=== PATIENT | female | born 1975 | race African-American/Black ===

== ENCOUNTER 2018-03-10 09:10 | Emergency (ER) | payer SELFPAY ==
--- NOTE | 2018-03-10 10:22 | RAD REPORT ---
EXAM DESCRIPTION: Sridhar Pa And Lat (2 Views)03/10/2018 10:12 am CLINICAL HISTORY: Cough COMPARISON: None FINDINGS: Small left pleural effusion is present. Small amount of fluid is loculated within the obl ique fissure. Mild left basilar opacities probably represent atelectasis. The heart is normal size
[2018-03-10] MEDS ORDERED: FUROSEMIDE 20 MG TABLET ONE (10:33)
--- NOTE | 2018-03-10 11:05 | ER ---
Nurse's Notes [facility] Name: Sherley Alex Age: 42 yrs Sex: Female : 1975 Arrival Date: 03/10/2018 Time: 09:14 Bed 19 Private MD: out of town, doctor Diagnosis: Edema, unspecified Presentation: 03/10 09:22 Presenting complaint: Patient states: bilateral lower extremity swelling x "a few ss days", that has been getting worse over time. Transition of care: patient was not received from another setting of care. Risk Assessment: Do you want to hurt yourself or someone else? Patient reports no desire to harm self or others. Initial Sepsis Screen: Does the patient meet any 2 criteria? No. Patient's initial sepsis screen is negative. Does the patient have a suspected source of infection? No. Patient's initial sepsis screen is negative. Care prior to arrival: None. 09:22 Method Of Arrival: Ambulatory ss 09:22 Acuity: BABITA 3 ss 09:27 Note Pt reports she is currently staying at [facility] for ETOH abuse and is ss reportedly 23 days sober. Historical: - Allergies: 09:27 No Known Allergies; ss - Home Meds: 09:27 levothyroxine 75 mcg tab 1 tab once daily [Active]; meloxicam 15 mg oral tab 1 tab once ss daily [Active]; - PMHx: 09:27 etoh abuse (23 days sober 03/10/18); Hypothyroidism; ss - PSHx: 09:27 None; ss - Immunization history:: Adult Immunizations up to date. - Social history:: Smoking status: Patient/guardian denies using tobacco, Patient uses ETOH, however is 23 days sober. - Ebola Screening: : Patient denies exposure to infectious person Patient denies travel to an Ebola-affected area in the 21 days before illness onset. Screenin:45 Abuse screen: Denies threats or abuse. Nutritional screening: No deficits noted. em Tuberculosis screening: No symptoms or risk factors identified. Fall Risk None identified. Assessment: 10:35 General: Appears in no apparent distress. comfortable, Behavior is calm, cooperative, em Denies fever. Pain: Complains of pain in right leg and left leg Pain currently is 8 out of 10 on a pain scale. Quality of pain is described as pressure. Neuro: Level of Consciousness is awake, alert, obeys commands, Oriented to person, place, time, situation. Cardiovascular: Edema is 2+ to left midcalf, left ankle, left foot, left toes, right midcalf, right ankle, right foot and right toes. Respiratory: Airway is patent Respiratory effort is even, unlabored, Respiratory pattern is regular, symmetrical, Breath sounds are clear bilaterally. GI: Abdomen is flat. Derm: Skin is intact, is healthy with good turgor, Skin is pink, warm \\T\\ dry. Musculoskeletal: Range of motion: intact in all extremities. 10:45 General: The previous assessment is accurate, call light remains within reach. . ss 11:30 Reassessment: Patient appears in no apparent distress at this time. pt request to speak em with provider about dx, pt was explained dx and explained medications and to follow up with PCP, pt still adamant on speaking with provider, provider notified. Vital Signs: 09:27 BP 138 / 78; Pulse 92; Resp 16; Temp 98.5(TE); Pulse Ox 100% on R/A; ss 10:48 BP 126 / 98; Pulse 69; Resp 17; Pulse Ox 100% on R/A; mh5 11:04 BP 133 / 80; Pulse 60; Resp 16; Temp 98.2(O); Pulse Ox 100% on R/A; mh5 ED Course: 09:14 Patient arrived in ED. sb2 09:14 out of town, doctor is Private Physician. sb2 09:19 [facility] snw 09:19 Jayy Leon MD is Attending Physician. snw 09:19 Patient has correct armband on for positive identification. Bed in low position. Call mh5 light in reach. Placed in gown. Side rails up X 1. Warm blanket given. Pillow given. Pulse ox on. NIBP on. 09:25 Triage completed. ss 09:27 Arm band placed on right wrist. ss 10:01 Anish Meneses LVN is Primary Nurse. em 10:06 Chest Pa And Lat (2 Views) XRAY In Process Unspecified. EDMS 10:51 US Extremity Venous W Compression Devendra In Process Unspecified. EDMS 11:11 No provider procedures requiring assistance completed. Patient did not have IV access em during this emergency room visit. Administered Medications: 09:51 CANCELLED (other intervention used): Lasix 20 mg IVP once snw 10:50 Drug: LaSIX 20 mg Route: PO; em 11:32 Follow up: Response: No adverse reaction em 11:22 Drug: Motrin 400 mg Route: PO; em 11:32 Follow up: Response: No adverse reaction em Outcome: 11:04 Discharge ordered by . snw 12:01 Discharged to home ambulatory. em 12:01 Condition: good 12:01 Discharge instructions given to patient, Instructed on discharge instructions, follow up and referral plans. Demonstrated understanding of instructions, follow-up care, Prescriptions given X 2. 12:02 Patient left the ED. em Signatures: Dispatcher [employer] EDMS Cookie Welch, OIL AND GAS SUPERINTENDENT-C OIL AND GAS SUPERINTENDENT-Csnw Anish Meneses, WOOD MILL SUPERVISOR WOOD MILL SUPERVISOR em Nel Sánchez, NHAN RN Janel Perez 5 Mary Link sb2 Corrections: (The following items were deleted from the chart) 12:02 11:30 Reassessment: Patient appears in no apparent distress at this time. pt request to em speak with provider about dx, pt was explained dx and explained medications, pt still adamant on speaking with provider, provider notified em
--- NOTE | 2018-03-10 11:05 | EDPHYS ---
Physician Documentation [facility] Name: Sherley Alex Age: 42 yrs Sex: Female : 1975 Arrival Date: 03/10/2018 Time: 09:14 Bed 19 Private MD: out of town, doctor ED Physician Jayy Leon HPI: 03/10 09:54 This 42 yrs old Female presents to ER via Ambulatory with complaints of Ankle Swelling. snw 09:54 The patient presents with swelling. The complaints affect the left ankle, right ankle. snw Onset: The symptoms/episode began/occurred gradually, and became persistent. Context: The problem was sustained at home, resulted from an unknown cause. Associated signs and symptoms: The patient has no apparent associated signs or symptoms. Severity of symptoms: At their worst the symptoms were moderate. The patient has not experienced similar symptoms in the past. It is unknown whether or not the patient has recently seen a physician. Historical: - Allergies: : No Known Allergies; ss - Home Meds: :27 levothyroxine 75 mcg tab 1 tab once daily [Active]; meloxicam 15 mg oral tab 1 tab once ss daily [Active]; - PMHx: 09:27 etoh abuse (23 days sober 03/10/18); Hypothyroidism; ss - PSHx: :27 None; ss - Immunization history:: Adult Immunizations up to date. - Social history:: Smoking status: Patient/guardian denies using tobacco, Patient uses ETOH, however is 23 days sober. - Ebola Screening: : Patient denies exposure to infectious person Patient denies travel to an Ebola-affected area in the 21 days before illness onset. ROS: 09:53 Constitutional: Negative for fever, chills, and weight loss, Eyes: Negative for injury, snw pain, redness, and discharge, ENT: Negative for injury, pain, and discharge, Neck: Negative for injury, pain, and swelling, Cardiovascular: Negative for chest pain, palpitations, and edema, Respiratory: Negative for shortness of breath, cough, wheezing, and pleuritic chest pain, Abdomen/GI: Negative for abdominal pain, nausea, vomiting, diarrhea, and constipation, Back: Negative for injury and pain, : Negative for injury, bleeding, discharge, and swelling, Skin: Negative for injury, rash, and discoloration, Neuro: Negative for headache, weakness, numbness, tingling, and seizure, Psych: Negative for depression, anxiety, suicide ideation, homicidal ideation, and hallucinations. 09:53 MS/extremity: Positive for swelling, of the right ankle and left ankle. Exam: 09:52 Constitutional: This is a well developed, well nourished patient who is awake, alert, snw and in no acute distress. Head/Face: Normocephalic, atraumatic. Eyes: Pupils equal round and reactive to light, extra-ocular motions intact. Lids and lashes normal. Conjunctiva and sclera are non-icteric and not injected. Cornea within normal limits. Periorbital areas with no swelling, redness, or edema. ENT: Nares patent. No nasal discharge, no septal abnormalities noted. Tympanic membranes are normal and external auditory canals are clear. Oropharynx with no redness, swelling, or masses, exudates, or evidence of obstruction, uvula midline. Mucous membranes moist. Neck: Trachea midline, no thyromegaly or masses palpated, and no cervical lymphadenopathy. Supple, full range of motion without nuchal rigidity, or vertebral point tenderness. No Meningismus. Chest/axilla: Normal chest wall appearance and motion. Nontender with no deformity. No lesions are appreciated. Cardiovascular: Regular rate and rhythm with a normal S1 and S2. No gallops, murmurs, or rubs. Normal PMI, no JVD. No pulse deficits. Respiratory: Lungs have equal breath sounds bilaterally, clear to auscultation and percussion. No rales, rhonchi or wheezes noted. No increased work of breathing, no retractions or nasal flaring. Abdomen/GI: Soft, non-tender, with normal bowel sounds. No distension or tympany. No guarding or rebound. No evidence of tenderness throughout. Back: No spinal tenderness. No costovertebral tenderness. Full range of motion. Skin: Warm, dry with normal turgor. Normal color with no rashes, no lesions, and no evidence of cellulitis. Neuro: Awake and alert, GCS 15, oriented to person, place, time, and situation. Cranial nerves II-XII grossly intact. Motor strength 5/5 in all extremities. Sensory grossly intact. Cerebellar exam normal. Normal gait. Psych: Awake, alert, with orientation to person, place and time. Behavior, mood, and affect are within normal limits. 09:52 Musculoskeletal/extremity: ROM: intact in all extremities, Circulation is intact in all extremities. Sensation intact. bilateral lower ext with edema, feet elevated post assessment. Vital Signs: 09:27 BP 138 / 78; Pulse 92; Resp 16; Temp 98.5(TE); Pulse Ox 100% on R/A; ss 10:48 BP 126 / 98; Pulse 69; Resp 17; Pulse Ox 100% on R/A; mh5 11:04 BP 133 / 80; Pulse 60; Resp 16; Temp 98.2(O); Pulse Ox 100% on R/A; mh5 MDM: 09:19 Patient medically screened. snw 11:05 Data reviewed: vital signs, nurses notes. Data interpreted: Pulse oximetry: on room air snw is 100 %. Interpretation: normal. Counseling: I had a detailed discussion with the patient and/or guardian regarding: the historical points, exam findings, and any diagnostic results supporting the discharge/admit diagnosis, the presence of at least one elevated blood pressure reading (>120/80) during this emergency department visit, radiology results, the need for outpatient follow up, to return to the emergency department if symptoms worsen or persist or if there are any questions or concerns that arise at home. Special discussion: I have referred the patient to see his PCP for further evaluation of high blood pressure. Based on the history and exam findings, there is no indication for further emergent testing or inpatient evaluation. I discussed with the patient/guardian the need to see the primary care provider for further evaluation of the symptoms. 11:49 Response to treatment: Pt resistant to explanation of edema. Discussed plan of care snw prior to testing. 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 Pt requested pain medications, tylenol ordered. Pt in tx facility for ETOH abuse. Negative chest and US results relayed by pt's Nurse. As pt was leaving, I offered to print results and discuss them with her and she declined and stated that she is just going to leave.. 03/10 09:51 Order name: US Extremity Venous W Compression Devendra; Complete Time: 11:38 snw 03/10 09:51 Order name: Chest Pa And Lat (2 Views) XRAY; Complete Time: 10:23 snw Administered Medications: 09:51 CANCELLED (other intervention used): Lasix 20 mg IVP once snw 10:50 Drug: LaSIX 20 mg Route: PO; em 11:32 Follow up: Response: No adverse reaction em 11:22 Drug: Motrin 400 mg Route: PO; em 11:32 Follow up: Response: No adverse reaction em Disposition: 03/10/18 11:04 Discharged to Home. Impression: Edema, unspecified. - Condition is Stable. - Discharge Instructions: Alcohol Abuse and Nutrition, Rehydration, Adult, Peripheral Edema. - Prescriptions for Vitamin 27- 0.8 mg Oral Tablet - take 1 tablet by ORAL route once daily; 30 tablet. Hydrochlorothiazide 25 mg Oral Tablet - take 1 tablet by ORAL route once daily .; 30 tablet. - Medication Reconciliation Form, Thank You Letter, Antibiotic Education, Prescription Opioid Use form. - Follow up: Private Physician; When: 2 - 3 days; Reason: Recheck today's complaints, Continuance of care, Re-evaluation by your physician. Follow up: Emergency Department; When: As needed; Reason: Worsening of condition. Addendum: 03/14/2018 10:57 Co-signature as Attending Physician, Jayy Leon MD I agree with the assessment and c ayala plan of care. Signatures: Dispatcher [employer] Jayy James MD MD cha Therrien, Shelly, HOT METAL CHARGER-C HOT METAL CHARGER-Csnw Anish Meneses, GROUT MACHINE OPERATOR GROUT MACHINE OPERATOR Nel Allen, RN RN ss Corrections: (The following items were deleted from the chart) 03/10 09:51 09:51 Lasix 20 mg IVP once ordered. snw snw 12:02 11:04 03/10/2018 11:04 Discharged to Home. Impression: Edema, unspecified. Condition is em Stable. Forms are Medication Reconciliation Form, Thank You Letter, Antibiotic Education, Prescription Opioid Use. Follow up: Private Physician; When: 2 - 3 days; Reason: Recheck today's complaints, Continuance of care, Re-evaluation by your physician. Follow up: Emergency Department; When: As needed; Reason: Worsening of condition. snw
[2018-03-10] MEDS ORDERED: IBUPROFEN 400 MG TAB ONE (11:22)
--- NOTE | 2018-03-10 11:29 | RAD REPORT ---
EXAM DESCRIPTION: US - Extrem Venous W Compress Devendra - 03/10/2018 11:11 am CLINICAL HISTORY: SWELLING Bilateral leg edema and swelling. COMPARISON: No comparisons TECHNIQUE: Real-time sonographic interrogation of the left and right lower extremity deep venous sys tems was performed. FINDINGS: Normal compressibility, flow augmentation, phasic flow and spontaneous flow is identified in both the left and right lower extremity deep venous systems. IMPRESSION: No sonographic evidence of left or right lower extremity deep venous thrombosis.
== END 2018-03-10 12:02 | disposition home or self-care (01) ==
LOC: ER 09:10
DX: R60.9 Edema, unspecified (principal); E03.9 Hypothyroidism, unspecified; Z79.899 Other long term (current) drug therapy; Z79.1 Long term (current) use of non-steroidal anti-inflammatories (NSAID)
CPT/HCPCS: 71046; 93970; 99284

== ENCOUNTER 2018-03-13 17:30 | Emergency (ER) | payer SELFPAY ==
--- OUTSIDE RECORDS SUMMARY | 2018-03-13 17:38 | XMS REPORT ---
:1975 Author Organization [facility] Address [address] [place] [address] Care Team Providers Name Role Phone Unavailable Unavailable Unavailable Payers Payer Name Policy Type Policy Number Effective Date Expiration Date Problems This patient has no known problems. Allergies, Adverse Reactions, Alerts Allergy Allergy Status Severity Reaction(s) Onset Inactive Treating Comments Name Type Date Date Clinician latex DA Active U 2018-01 00:00:0 0 No Known DA Active U 2011-02 Allergies 00:00:0 0 latex DA Active U 2011-02 00:00:0 0 Medications This patient has no known medications.
--- NOTE | 2018-03-13 19:08 | EDPHYS ---
Physician Documentation [facility] Name: Sherley Alex Age: 42 yrs Sex: Female : 1975 Arrival Date: 03/13/2018 Time: 17:34 Bed 30 Private MD: None, None ED Physician Fito Diehl HPI: 03/13 19:03 This 42 yrs old Black Female presents to ER via Ambulatory with complaints of Feet rn Swelling, Leg Pain. 19:03 The patient presents with swelling. The complaints affect the left foot, right foot. rn Onset: The symptoms/episode began/occurred at an unknown time. Modifying factors: The symptoms are alleviated by nothing. the symptoms are aggravated by nothing. Severity of symptoms: At their worst the symptoms were mild, in the emergency department the symptoms are unchanged. The patient has experienced a previous episode. Reports seen here a few days ago, seen, had negative u/s of legs, unclear etiology of swelling, returns today because at rehab center and they told her to come back for evaluation. No fever, no trauma. . 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 - Social history:: Smoking status: Patient/guardian denies using tobacco, Patient/guardian denies using alcohol. - Ebola Screening: : Patient negative for fever greater than or equal to 101.5 degrees Fahrenheit, and additional compatible Ebola Virus Disease symptoms Patient denies exposure to infectious person Patient denies travel to an Ebola-affected area in the 21 days before illness onset. - Family history:: not pertinent. - Hospitalizations: : No recent hospitalization is reported. ROS: 19:03 Constitutional: Negative for fever, chills, and weight loss, Cardiovascular: Negative rn for chest pain, palpitations, + edema MS/Extremity: Negative for injury and deformity, Skin: Negative for injury, rash, and discoloration, Neuro: Negative for headache, weakness, and seizure. Exam: 19:03 Constitutional: This is a well developed, well nourished patient who is awake, alert, rn and in no acute distress. Head/Face: Normocephalic, atraumatic. Eyes: Pupils equal round and reactive to light, extra-ocular motions intact. Lids and lashes normal. Conjunctiva and sclera are non-icteric and not injected. Cornea within normal limits. Periorbital areas with no swelling, redness, or edema. Respiratory: Lungs have equal breath sounds bilaterally, clear to auscultation Skin: Warm, dry with normal turgor. Normal color with no rashes, no lesions, and no evidence of cellulitis. MS/ Extremity: Pulses equal, no cyanosis. Neurovascular intact. Full, normal range of motion. Equal circumference. + mild non-pitting edema bilateral feet. No rash or erythema/warmth/fluctuance Neuro: Awake and alert, GCS 15, oriented to person, place, time, and situation. Cranial nerves II-XII grossly intact. Motor strength 5/5 in all extremities. Sensory grossly intact. Cerebellar exam normal. Normal gait. Vital Signs: 17:50 BP 129 / 84; Pulse 74; Resp 18; Temp 99.7(O); Pulse Ox 100% on R/A; Weight 74.84 kg; hj Height 5 ft. 7 in. (170.18 cm); Pain 9/10; 17:50 Body Mass Index 25.84 (74.84 kg, 170.18 cm) MDM: 18:37 Patient medically screened. rn 19:03 Differential diagnosis: dependent edema. Data reviewed: vital signs, nurses notes, old rn medical records, and as a result, I will discharge patient. Counseling: I had a detailed discussion with the patient and/or guardian regarding: the historical points, exam findings, and any diagnostic results supporting the discharge/admit diagnosis, the need for outpatient follow up, to return to the emergency department if symptoms worsen or persist or if there are any questions or concerns that arise at home. Special discussion: I discussed with the patient/guardian in detail that at this point there is no indication for admission to the hospital. It is understood, however, that if the symptoms persist or worsen the patient needs to return immediately for re-evaluation. ED course: U/s a few days ago neg for dvt or flow problem, mild dependent edema of both feet, no sob or respiratory complaints, offered screening blood tests here today, declines, states prefers to see a private doctor for more testing and evaluation.. Administered Medications: No medications were administered Disposition: 03/13/18 19:08 Discharged to Home. Impression: Edema, unspecified. - Condition is Stable. - Discharge Instructions: Edema, Peripheral Edema. - Medication Reconciliation Form, Thank You Letter, Antibiotic Education, Prescription Opioid Use form. - Follow up: Private Physician; When: As needed; Reason: Recheck today's complaints, Re-evaluation by your physician. - Problem is an ongoing problem. - Symptoms are unchanged. Signatures: Fito Diehl MD MD rn Joaquin, Henry, RN RN hj Lowrey, Tammy, RN RN tl3 Corrections: (The following items were deleted from the chart) 19:05 19:03 Constitutional: Negative for fever, chills, and weight loss, Cardiovascular: rn Negative for chest pain, palpitations, + edema MS/Extremity: Negative for injury and deformity, Skin: Negative for injury, rash, and discoloration, Neuro: Negative for headache, weakness, numbness, tingling, and seizure, rn 19:06 19:03 Constitutional: This is a well developed, well nourished patient who is awake, rn alert, and in no acute distress. Head/Face: Normocephalic, atraumatic. Eyes: Pupils equal round and reactive to light, extra-ocular motions intact. Lids and lashes normal. Conjunctiva and sclera are non-icteric and not injected. Cornea within normal limits. Periorbital areas with no swelling, redness, or edema. Skin: Warm, dry with normal turgor. Normal color with no rashes, no lesions, and no evidence of cellulitis. MS/ Extremity: Pulses equal, no cyanosis. Neurovascular intact. Full, normal range of motion. Equal circumference. + mild non-pitting edema bilateral feet. No rash or erythema/warmth/fluctuance Neuro: Awake and alert, GCS 15, oriented to person, place, time, and situation. Cranial nerves II-XII grossly intact. Motor strength 5/5 in all extremities. Sensory grossly intact. Cerebellar exam normal. Normal gait. rn 20:47 19:08 03/13/2018 19:08 Discharged to Home. Impression: Edema, unspecified. Condition is tl3 Stable. Forms are Medication Reconciliation Form, Thank You Letter, Antibiotic Education, Prescription Opioid Use. Follow up: Private Physician; When: As needed; Reason: Recheck today's complaints, Re-evaluation by your physician. Problem is an ongoing problem. Symptoms are unchanged. rn
--- NOTE | 2018-03-13 19:08 | ER ---
Nurse's Notes [facility] Name: Sherley Alex Age: 42 yrs Sex: Female : 1975 Arrival Date: 03/13/2018 Time: 17:34 Bed 30 Private MD: None, None Diagnosis: Edema, unspecified Presentation: 03/13 17:47 Presenting complaint: Patient states: both my feet are swollen and it hurts; feels like hj i have little pins from my legs down to my feet; reports herniated discs;. Transition of care: patient was not received from another setting of care. Onset of symptoms was March 13, 2018. Risk Assessment: Do you want to hurt yourself or someone else? Patient reports no desire to harm self or others. Initial Sepsis Screen: Does the patient meet any 2 criteria? No. Patient's initial sepsis screen is negative. Does the patient have a suspected source of infection? No. Patient's initial sepsis screen is negative. Care prior to arrival: 17:47 Method Of Arrival: Ambulatory 17:47 Acuity: BABITA 4 hj Triage Assessment: 17:49 General: Appears in no apparent distress. uncomfortable, Behavior is calm, cooperative, hj appropriate for age. Pain: Complains of pain in right leg and left leg. 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 - Social history:: Smoking status: Patient/guardian denies using tobacco, Patient/guardian denies using alcohol. - Ebola Screening: : Patient negative for fever greater than or equal to 101.5 degrees Fahrenheit, and additional compatible Ebola Virus Disease symptoms Patient denies exposure to infectious person Patient denies travel to an Ebola-affected area in the 21 days before illness onset. - Family history:: not pertinent. - Hospitalizations: : No recent hospitalization is reported. Screenin:49 Abuse screen: Denies threats or abuse. Denies injuries from another. Nutritional hj screening: No deficits noted. Tuberculosis screening: Fall Risk None identified. Vital Signs: 17:50 BP 129 / 84; Pulse 74; Resp 18; Temp 99.7(O); Pulse Ox 100% on R/A; Weight 74.84 kg; hj Height 5 ft. 7 in. (170.18 cm); Pain 9/10; 17:50 Body Mass Index 25.84 (74.84 kg, 170.18 cm) hj ED Course: 17:34 Patient arrived in ED. mr 17:34 None, None is Private Physician. mr 17:48 Triage completed. hj 17:49 Arm band placed on right wrist. hj 17:49 Patient has correct armband on for positive identification. Placed in gown. Bed in low hj position. Call light in reach. Side rails up X 1. 18:37 Fito Diehl MD is Attending Physician. rn 18:48 Danielle Elizalde RN is Primary Nurse. tl3 Administered Medications: No medications were administered Outcome: 19:08 Discharge ordered by . rn 20:47 Patient left the ED. tl3 Signatures: Florencia Landa mr Fito Diehl MD MD rn Joaquin, Henry, RN RN Danielle Elizalde RN RN tl3 Corrections: (The following items were deleted from the chart) 17:52 17:50 Pulse 74bpm; Resp 18bpm; Pulse Ox 100% RA; Temp 99.7F Oral; 74.84 kg; Height 5 hj ft. 7 in.; BMI: 25.8; Pain 9/10; hj
== END 2018-03-13 20:47 | disposition home or self-care (01) ==
LOC: ER 17:30
DX: R60.9 Edema, unspecified (principal); E03.9 Hypothyroidism, unspecified
CPT/HCPCS: 99281